=== PATIENT | female | born 1980 | race Caucasian/White ===

== ENCOUNTER → 2018-06-11 | Outpatient (CLI) | payer OTHER ==
[~2018-06-11] MED LIST: SPIR50TA4 PO
[2018-06-11 15:54] LABS: BASOPHILS # (AUTO) 0.04 x10^3/uL (0-0.1); BASOPHILS % (AUTO) 1 % (0-1); EOSINOPHILS # (AUTO) 0.13 x10^3/uL (0-0.4); EOSINOPHILS % (AUTO) 2 % (1-7); LYMPHOCYTES # (AUTO) 2.41 x10^3/uL (1-3.4); LYMPHOCYTES % (AUTO) 31 % (22-44); MD NO; MEAN CORPUSCULAR HEMOGLOBIN 31.2 pg (27.0-34.8); MEAN CORPUSCULAR HGB CONC 33.2 g/dL (32.4-35.8); MEAN PLATELET VOLUME 7.9 fL (7.4-10.4); MONOCYTES # (AUTO) 0.54 x10^3/uL (0.2-0.8); MONOCYTES % (AUTO) 7 % (2-9); NEUTROPHILS # (AUTO) 4.78 x10^3/uL (1.8-6.8); NEUTROPHILS % (AUTO) 60 % (42-75); PLATELET COUNT 297 x10^3/uL (130-400); RED BLOOD COUNT 4.12 x10^6/uL (3.82-5.3); RED CELL DISTRIBUTION WIDTH 13.1 % (9.6-15.2)
[2018-06-11 16:02] LABS: ALANINE AMINOTRANSFERASE 25 U/L (12-78); ALBUMIN 3.7 g/dL (3.4-5.0); ANION GAP 6 mmol/L (5-15); CHLORIDE 108 mmol/L (98-107); CREATININE 0.94 mg/dL (0.55-1.02)
[2018-06-11 16:07] LABS: ALKALINE PHOSPHATASE 96 U/L (45-117); BILIRUBIN,TOTAL 0.2 mg/dL (0.2-1.0); TOTAL PROTEIN 7.4 g/dL (6.4-8.2)
== END | disposition home or self-care (01) ==
LOC: STAR 15:15
PROVIDERS: ATTEND Obstetrics & Gynecology Female Pelvic Medicine and Reconstructive Surgery
DX: Z01.818 Encounter for other preprocedural examination (principal); E28.2 Polycystic ovarian syndrome; N80.0 Endometriosis of uterus; N80.8 Other endometriosis; N93.0 Postcoital and contact bleeding
CPT/HCPCS: 36415; 80053; 84703; 85025

== ENCOUNTER 2018-06-18 12:23 | Day surgery (SDC) | payer OTHER ==
[~2018-06-18] VITALS: Ht 167.6 cm; Wt 73.1 kg
[~2018-06-18 12:23] MED LIST changes: +BUPIVACAINE/PF 0.25% ONE; +EPINEPHRINE 1 MG/ML, 1ML ONE; +FENTANYL PF 250 MCG/5ML ONE; +INDIGO CARMINE 0.8%, 5ML ONE; +MIDAZOLAM 1 MG/ML, 2ML ONE; +THROMBIN 5,000 UNIT VIAL TP ONE
[2018-06-18] MEDS ORDERED: ONDANSETRON 2MG/ML, 2ML ONE (12:29)
[2018-06-18] MEDS ORDERED: DEXAMETHASONE 4 MG/ML, 1ML ONE (12:29)
[2018-06-18] MEDS ORDERED: PROPOFOL 10 MG/ML, 20ML ONE (12:29)
[2018-06-18] MEDS ORDERED: GLYCOPYRROLATE 0.2MG/1ML, 5ML ONE (12:29)
[2018-06-18] MEDS ORDERED: ROCURONIUM 10MG/ML,5ML ONE (12:29)
[2018-06-18] MEDS ORDERED: CEFAZOLIN 1,000 MG ONE (12:29)
[2018-06-18] MEDS ORDERED: KETOROLAC 30 MG/1 ML ONE (12:29)
[2018-06-18] MEDS ORDERED: NEOSTIGMINE 1 MG/ML, 10ML ONE (12:29)
[2018-06-18] MEDS ORDERED: LACTATED RINGERS 1,000 ML IV SCH ×2 (12:51→17:05)
[2018-06-18] MEDS ORDERED: GABAPENTIN 300 MG CAPSULE PO STA (12:52)
[2018-06-18] MEDS ORDERED: ACETAMINOPHEN 500 MG TABLET PO STA (12:52)
[2018-06-18] MEDS ORDERED: SCOPOLAMINE PATCH, 1.5MG PATCH.TD72 TD STA (12:52)
[2018-06-18 12:56] LABS: HCG UR SG 1.029 (1.003-1.030)
[2018-06-18] MEDS ORDERED: LIDOCAINE-MPF 1%, 2ML INFIL ONE (13:00)
[2018-06-18] MEDS ORDERED: MEPERIDINE/PF 25MG/0.5ML IVPush PRN (15:00)
[2018-06-18] MEDS ORDERED: OXYcodone 5 MG/5 ML ORAL.SOL UDC PO PRN (15:00)
[2018-06-18] MEDS ORDERED: PROMETHAZINE 25 MG/ML, 1ML IV PRN (15:00)
[2018-06-18] MEDS ORDERED: PROMETHAZINE 25 MG SUPP PR PRN (15:00)
[2018-06-18] MEDS ORDERED: MORPHINE SULFATE 4 MG/ML, 1ML IVPush PRN (15:00)
[2018-06-18] MEDS ORDERED: LABETALOL 5MG/ML, 20ML IV PRN (15:00)
[2018-06-18] MEDS ORDERED: ONDANSETRON ODT 8 MG PO PRN (15:00)
[2018-06-18] MEDS ORDERED: HYDROmorphone 2 MG/ML, 1ML IVPush PRN (15:00)
[2018-06-18] MEDS ORDERED: HALOPERIDOL 5 MG/ML IV PRN (15:00)
[2018-06-18] MEDS ORDERED: hydrALAzine 20 MG/ML, 1ML IV PRN (15:00)
[2018-06-18] MEDS ORDERED: ONDANSETRON 2MG/ML, 2ML IV PRN (15:00)
[2018-06-18] MEDS ORDERED: PROMETHAZINE 25 MG/ML, 1ML IM PRN ×2 (15:00)
[2018-06-18] MEDS ORDERED: FENTANYL PF 100 MCG/2ML IV PRN (15:00)
[2018-06-18] MEDS ORDERED: PROMETHAZINE 12.5 MG SUPP PR PRN (15:00)
[2018-06-18] MEDS ORDERED: CLINDAMYCIN 150 MG/ML, 6ML ONE (15:18)
[2018-06-18] MEDS ORDERED: GENTAMICIN 80 MG/2 ML ONE (15:51)
[2018-06-18] MEDS ORDERED: FENTANYL PF 250 MCG/5ML ONE (15:58)
[2018-06-18] MEDS ORDERED: FENTANYL PF 100 MCG/2ML ONE (17:22)
[2018-06-18] MEDS ORDERED: OXYcodone 5 MG/5 ML ORAL.SOL UDC ONE (17:22)
[2018-06-18] MEDS ORDERED: IBUPROFEN 600 MG TABLET PO PRN (17:30)
[2018-06-18] MEDS ORDERED: PROMETHAZINE 25 MG SUPP PR ONE (17:30)
[2018-06-18] MEDS ORDERED: ONDANSETRON 2MG/ML, 2ML IVPush PRN (17:30)
[2018-06-18] MEDS ORDERED: OXYcodone/APAP 5/325MG TABLET PO PRN (17:30)
== END 2018-06-18 21:45 | disposition home or self-care (01) ==
LOC: OUT 12:23 → 4NOR 18:18 → OUT 21:45
PROVIDERS: ATTEND Obstetrics & Gynecology Female Pelvic Medicine and Reconstructive Surgery
DX: E28.2 Polycystic ovarian syndrome (principal); N93.9 Abnormal uterine and vaginal bleeding, unspecified; N80.3 Endometriosis of pelvic peritoneum; N94.10 Unspecified dyspareunia; Z88.0 Allergy status to penicillin; Z72.89 Other problems related to lifestyle
CPT/HCPCS: 58552; 58662; 81025; 88305; 88307; J0171; J1100; J1580; J1885; J2250; J2405; J2704; J2710; J3010; J3490; J7120; G0378; J0690